=== PATIENT | male | born 1985 | race Caucasian/White ===

== ENCOUNTER 2019-05-23 14:36 | Emergency (ER) | payer MEDICAID ==
[~2019-05-23] VITALS: Ht 190.5 cm; Wt 105.8 kg
[2019-05-23 14:42] VITALS: BP 150/66
[2019-05-23] MEDS ORDERED: SULF1TAB49 PO (16:53)
[2019-05-23] MEDS ORDERED: LIDOcaine 1% w/EPI 1:100,000 30ml vial (MDV) ONE (17:00)
== END 2019-05-23 17:21 | disposition home or self-care (01) ==
LOC: ER 14:37
DX: L02.416 Cutaneous abscess of left lower limb (principal); F12.90 Cannabis use, unspecified, uncomplicated; F15.90 Other stimulant use, unspecified, uncomplicated; Z86.14 Personal history of Methicillin resistant Staphylococcus aureus infection; Z56.0 Unemployment, unspecified; Z79.899 Other long term (current) drug therapy
CPT/HCPCS: 10060; 99283

== ENCOUNTER 2021-08-01 00:25 | Emergency (ER) | payer MEDICAID ==
[~2021-08-01] VITALS: Ht 190.5 cm; Wt 76.0 kg
[2021-08-01] MEDS ORDERED: CLIN150C8 PO (01:38)
[2021-08-01 03:47] VITALS: BP 137/86
== END 2021-08-01 03:51 | disposition home or self-care (01) ==
LOC: ER 00:26
DX: L02.511 Cutaneous abscess of right hand (principal); R50.9 Fever, unspecified; F12.90 Cannabis use, unspecified, uncomplicated; F15.90 Other stimulant use, unspecified, uncomplicated; Z86.14 Personal history of Methicillin resistant Staphylococcus aureus infection; Z56.0 Unemployment, unspecified; Z79.2 Long term (current) use of antibiotics
CPT/HCPCS: 99283

== ENCOUNTER 2021-08-03 18:47 | Emergency (ER) | payer MEDICAID ==
[~2021-08-03] VITALS: Ht 190.5 cm; Wt 75.0 kg
[~2021-08-03 18:47] MED LIST: CLIN150C8 PO
[2021-08-03 18:58] VITALS: BP 136/72
[2021-08-03] MEDS ORDERED: LIDOcaine 1% 30ml preserv. free vial IJ ONE (21:00)
[2021-08-03] MEDS ORDERED: DOXY-1 PO (21:22)
== END 2021-08-03 21:52 | disposition home or self-care (01) ==
LOC: ER 18:47
DX: L02.511 Cutaneous abscess of right hand (principal); R53.83 Other fatigue; F12.90 Cannabis use, unspecified, uncomplicated; F15.90 Other stimulant use, unspecified, uncomplicated; Z86.14 Personal history of Methicillin resistant Staphylococcus aureus infection; Z56.0 Unemployment, unspecified; Z79.2 Long term (current) use of antibiotics
CPT/HCPCS: 10060; 99283

== ENCOUNTER 2022-10-10 04:43 | Emergency (ER) | payer MEDICAID | END 2022-10-10 05:14 | disposition left against medical advice (07) | LOC: ER 04:43 | DX: Z00.8 Encounter for other general examination (principal); Z53.21 Procedure and treatment not carried out due to patient leaving prior to being seen by health care provider ==